=== PATIENT | female | born 2000 | race Caucasian/White ===

== ENCOUNTER 2022-07-04 07:45 | Emergency (ER) | payer MEDICAID ==
[~2022-07-04] VITALS: Ht 167.6 cm; Wt 63.0 kg
[2022-07-04 19:45] LABS: CLARITY URINE TURBID (CLEAR); COLOR URINE YELLOW (YELLOW); KETONES URINE 3+ (NEGATIVE); LEUKOCYTE ESTERASE URINE 3+ (NEGATIVE); NITRITE URINE POSITIVE (NEGATIVE); OCCULT BLOOD URINE 2+ (NEGATIVE); PH URINE 5.5 (4.5-8.0); PROTEIN URINE 2+ (NEGATIVE); SPECIFIC GRAVITY URINE 1.018 (1.005-1.030); UROBILINOGEN URINE 0.2 E.U./dL (0.2-1.0)
[2022-07-04 20:24] LABS: BASOPHILS % 0.3 % (0.0-2.0); EOSINOPHILS % 0.3 % (0.0-5.0); HEMATOCRIT. 32.9 % (36.0-48.0); HEMOGLOBIN. 11.6 g/dL (12.0-16.0); LYMPHOCYTES % 11.8 % (20.0-50.0); MEAN CORPUSCULAR HEMOGLOBIN 31.5 pg (28.0-32.0); MEAN CORPUSCULAR VOLUME 89.3 fL (81.0-99.0); MEAN PLATELET VOLUME 7.4 fl (7.4-10.4); MONOCYTES % 6.9 % (2.0-8.0); NEUTROPHILS % 80.7 % (40.0-76.0); PLATELET 280 x1000/uL (130-400); RED BLOOD CELL COUNT 3.68 mill/uL (4.2-5.4); RED CELL DISTRIBUTION WIDTH 13.9 % (11.6-14.6)
[2022-07-04 20:28] LABS: CHLORIDE 107 mEq/L (98-107)
[2022-07-04 20:51] LABS: B-HCG QUANTITATIVE 9752 mIU/mL (<3)
[2022-07-05] MEDS ORDERED: CEPH500C2 MT (00:18)
[2022-07-05] MEDS ORDERED: CEPHALEXIN 250MG CAPSULE PO NR (00:30)
[2022-07-05 00:34] VITALS: BP 112/78
== END 2022-07-05 00:36 | disposition home or self-care (01) ==
LOC: ER 07:45
DX: O23.42 Unspecified infection of urinary tract in pregnancy, second trimester (principal); N39.0 Urinary tract infection, site not specified; Z3A.18 18 weeks gestation of pregnancy
CPT/HCPCS: 36415; 76805; 80053; 81003; 81025; 84702; 85025; 86850; 86900; 87077; 87186; 99284